=== PATIENT | female | born 1990 | race African-American/Black ===

== ENCOUNTER 2022-07-29 12:20 | Emergency (ER) | payer OTHER ==
[2022-07-29 12:49] VITALS: BP 128/92; PULSE 92; RESP 18; TEMP 98.8; BMI 23.3
== END 2022-07-29 13:10 | disposition home or self-care (01) ==
LOC: FER 12:20
DX: S60.221A Contusion of right hand, initial encounter (principal); Y04.8XXA Assault by other bodily force, initial encounter
CPT/HCPCS: 73130-TC-RT-FY; 99283-25